=== PATIENT | female | born 1935 | race Caucasian/White ===

== ENCOUNTER 2016-11-19 12:05 | Emergency (ER) | payer MEDICARE, OTHER ==
[2016-11-19] MEDS ORDERED: OPTIRAY 350 100 ML VIAL HMH IV ONE (12:06)
[2016-11-19] MEDS ORDERED: SODIUM CHLORIDE 0.9% 1,000 ML ONE (15:27)
== END 2016-11-19 20:42 | disposition home or self-care (01) ==
LOC: ER 12:05
DX: E87.1 Hypo-osmolality and hyponatremia (principal); K59.09 Other constipation; D64.9 Anemia, unspecified; I10 Essential (primary) hypertension
CPT/HCPCS: 36415; 71010; 74177; 76705; 80047; 80053; 81003; 83735; 84439; 84443; 85014; 85025; 85610; 85730; 93005; 96360; 96361; 99285; Q9967